=== PATIENT | female | born 1985 | race African-American/Black ===

== ENCOUNTER 2020-05-26 04:48 | Day surgery (SDC) | payer OTHER ==
[2020-05-22 10:38] VITALS: BMI 37.3
[2020-05-26] MEDS ORDERED: ETOMIDATE 20 MG/10 ML AMPUL IVPUSH ONE (08:25)
[2020-05-26 08:58] VITALS: TEMP 97.7
[2020-05-26 09:42] VITALS: BP 117/63; PULSE 88
== END 2020-05-26 10:10 | disposition home or self-care (01) ==
LOC: JASU-ENDO 04:48
PROVIDERS: ATTEND Internal Medicine Gastroenterology
PROC: 0DJD8ZZ Inspection of Lower Intestinal Tract, Via Natural or Artificial Opening Endoscopic (ICD-10-PCS; principal; 2020-05-26 08:45)
DX: K64.2 Third degree hemorrhoids (principal)
CPT/HCPCS: 81025